=== PATIENT | female | born 1990 | race Two or more races ===

== ENCOUNTER 2024-02-09 09:45 | Inpatient (IN) | payer OTHER ==
[~2024-02-09] VITALS: Ht 157.5 cm; Wt 3.6 kg
[2024-02-09 11:56] LABS: URINE APPEARANCE Cloudy; URINE BILIRRUBIN Negative (NEGATIVE); URINE BLOOD Negative; URINE COLOR Yellow; URINE LEUKOCYTE Trace; URINE NITRATE Negative; URINE PROTEIN Trace (NEGATIVE)
[2024-02-09 12:00] LABS: URINE EPITHELIAL CELLS 84.2 uL (0.0-38.8); URINE RBC 22.5 uL (0.0-20.8); URINE WBC 246.4 uL (0.0-23.2)
[2024-02-09 12:31] LABS: HEMATOCRIT 32.3 % (36.0-45.00); HEMOGLOBIN 11.5 g/dL (12.0-15.00); MEAN CELL VOLUME 96.9 fL (80.00-100.00); MEAN CORPUSCULAR HEMOGLOBIN 34.5 pg (27.00-32.0); MEAN CORPUSCULAR HGB CONC 35.6 g/dl (32.0-36.0); PLATELET COUNT 185 K/uL (150-450); RED BLOOD COUNT 3.33 M/uL (4.00-6.00); RED CELL DISTRIBUTION WIDTH 13.9 % (11.5-14.5)
[2024-02-09 13:02] LABS: INR < 0.93; PARTIAL THROMBOPLASTIN TIME 25.7 SECONDS (22.0-34.0); PROTHROMBIN TIME 9.6 SECONDS (9.0-11.5)
[2024-02-09 13:04] LABS: URINE BACTERIA > 9821.5 uL (0.0-1933); URINE GLUCOSE 100 MG/DL (NEGATIVE)
[2024-02-14] MEDS ORDERED: PRENATAL + DHA1 EAC1 PO (11:25)
[2024-02-14] MEDS ORDERED: ERYTHROMYCIN BASE 1 GM TUBE OP ONE (12:55)
[2024-02-14] MEDS ORDERED: CEFAZOLIN SODIUM 1,000 MG VIAL ONE (13:01)
[2024-02-14] MEDS ORDERED: OXYTOCIN 10 UNITS/ML VIAL ONE ×2 (14:00→21:28)
[2024-02-14] MEDS ORDERED: KETOROLAC TROMETHAMINE 60 MG VIAL IM STA (17:44)
[2024-02-14] MEDS ORDERED: OXYTOCIN 1,000 ML IV SCH (17:45)
[2024-02-14] MEDS ORDERED: CHLORHEXIDINE GLUCONATE 120 ML BOTTLE TOP SCH (17:45)
[2024-02-14] MEDS ORDERED: PROMETHAZINE HCL 25 MG/ML AMPUL IM PRN (17:45)
[2024-02-14] MEDS ORDERED: MEPERIDINE HCL/PF 50 MG/ML VIAL IM PRN (17:45)
[2024-02-14] MEDS ORDERED: RINGERS SOLUTION,LACTATED 1,000 ML IV SCH (17:45)
[2024-02-14] MEDS ORDERED: ERYTHROMYCIN BASE 1 GM TUBE OP SCH (17:45)
[2024-02-14] MEDS ORDERED: ONDANSETRON HCL 2 MG/ML VIAL ONE (19:27)
[2024-02-14] MEDS ORDERED: KETOROLAC TROMETHAMINE 60 MG VIAL IM ONE (19:28)
[2024-02-14 22:18] LABS: HEMOGLOBIN 11.9 g/dL (12.0-15.00); MEAN CELL VOLUME 96.1 fL (80.00-100.00); MEAN CORPUSCULAR HEMOGLOBIN 33.5 pg (27.00-32.0); MEAN CORPUSCULAR HGB CONC 34.9 g/dl (32.0-36.0); PLATELET COUNT 168 K/uL (150-450); RED BLOOD COUNT 3.54 M/uL (4.00-6.00); RED CELL DISTRIBUTION WIDTH 13.8 % (11.5-14.5)
[2024-02-15] MEDS ORDERED: OxyCODONE HCL/APAP UD (PERCOCET) PO PRN (09:00)
[2024-02-17] MEDS ORDERED: IBUPROFEN800 MG PO (07:30)
== END 2024-02-17 13:22 | disposition home or self-care (01) | DRG 788 ==
LOC: OB/GYN 09:45 → O/R 02-14 11:00 → OB/GYN 02-14 11:00
PROVIDERS: ADMIT Obstetrics & Gynecology; ATTEND Obstetrics & Gynecology
PROC: 4A1HXCZ Monitoring of Products of Conception, Cardiac Rate, External Approach (ICD-10-PCS; 2024-02-14)
PROC: 10D00Z1 Extraction of Products of Conception, Low, Open Approach (ICD-10-PCS; principal; 2024-02-14 16:30)
DX: O34.211 Maternal care for low transverse scar from previous cesarean delivery (principal); Z3A.39 39 weeks gestation of pregnancy; Z37.0 Single live birth; Z20.822 Contact with and (suspected) exposure to COVID-19